=== PATIENT | female | born 1995 | race Caucasian/White ===

== ENCOUNTER 2019-03-31 13:26 | Emergency (ER) | payer SELFPAY ==
[2019-03-31 14:55] LABS: URINE BLOOD (Dip) POC 2+ (NEGATIVE); URINE GLUCOSE (Dip) POC Negative (NEGATIVE); URINE KETONES (Dip) POC 1+ (NEGATIVE); URINE LEUKOCYTE EST (Dip) POC 1+ (NEGATIVE); URINE NITRITE (Dip) POC Positive (NEGATIVE); URINE TOTAL PROTEIN POC 2+ (NEGATIVE)
[2019-03-31 14:55] LABS: URINE PH (Dip) POC 5.5 (5.0-8.5)
[2019-03-31] MEDS: LIDOCAINE 1% (MPF) 5 ML VIAL INJ (15:10)
[2019-03-31] MEDS: CEFTRIAXONE 1 GM INJ IM (15:11)
== END 2019-03-31 15:36 | disposition home or self-care (01) ==
LOC: FTE 13:26
DX: N39.0 Urinary tract infection, site not specified (principal)
CPT/HCPCS: 81003; 81025; 96372; 99284-25